=== PATIENT | female | born 1930 | race Caucasian/White ===

== ENCOUNTER 2016-10-19 14:50 | Inpatient (IN) | payer MEDICARE ==
[~2016-10-19] VITALS: Ht 162.6 cm; Wt 80.6 kg
[~2016-10-19 14:50] MED LIST: ENAL10TA PO; METF500T4 PO; METO25 PO; SIMV20TA6 PO; WARF2TAB6 PO
[2016-10-19 16:02] LABS: GLUCOSE,POINT OF CARE 113 MG/DL (70-110)
[2016-10-19 19:33] LABS: BASOPHILS % (AUTO) 0.3 % (0.0-2.0); EOSINOPHILS % (AUTO) 2.2 % (1.0-6.0); HEMOGLOBIN 12.9 g/dL (12.0-16.0); LYMPHOCYTES # (AUTO) 1.3 K/uL (1.0-4.8); LYMPHOCYTES % (AUTO) 13.6 % (22.0-44.0); MEAN CORPUSCULAR HEMOGLOBIN 24.6 pg (26.0-34.0); MEAN CORPUSCULAR HGB CONC 31.5 G/dL (31.0-37.0); MEAN CORPUSCULAR VOLUME 78 fL (80-100); MONOCYTES # (AUTO) 1.1 K/uL (0.1-1.0); MONOCYTES % (AUTO) 11.5 % (2.0-9.0); NEUTROPHILS # (AUTO) 6.7 K/uL (1.8-7.7); NEUTROPHILS % (AUTO) 72.4 % (40.0-70.0); PLATELET COUNT (AUTO) 209 K/uL (150-450); RED BLOOD CELL COUNT(AUTO) 5.24 MIL/uL (4.00-5.20); RED CELL DISTRIBUTION WIDTH 18.7 % (11.5-14.5); WHITE BLOOD COUNT (AUTO) 9.3 K/uL (4.5-11.0)
[2016-10-19 19:42] LABS: ANION GAP 2 mmol/L (8-16); CALCIUM, TOTAL 9.3 mg/dL (8.8-10.5); CARBON DIOXIDE 28 mmol/L (22-29); CHLORIDE 102 mmol/L (98-107); CREATININE 1.17 mg/dL (0.60-1.30); GLOMERULAR FILTR. RATE CALC 44 mL/min (>60); POTASSIUM 4.2 mmol/L (3.5-5.1); SODIUM SERUM 132 mmol/L (136-145); UREA NITROGEN, BLOOD 28 mg/dL (7-18)
[2016-10-19 19:48] LABS: INR 1.8 (0.9-1.1)
[2016-10-19 20:07] LABS: ALANINE AMINOTRANSFERASE 23 U/L (12-78); ALBUMIN 3.3 g/dL (3.4-5.0); ASPARTATE AMINOTRANSFERASE 39 U/L (15-37); B-TYPE NATRIURETIC PEPTIDE 602 pg/mL (0-100); BILIRUBIN,TOTAL 0.8 mg/dL (0.1-1.0); CREATINE KINASE MB 0.7 ng/mL (0-5); CREATINE KINASE, TOTAL 93 U/L (26-192); TOTAL PROTEIN, SERUM 8.3 g/dL (6.4-8.2)
[2016-10-19] MEDS ORDERED: ALBUTEROL SULFATE 2.5 MG/0.5 ML NEB SOLUTION NEB ONE (20:45)
[2016-10-19] MEDS ORDERED: NITROGLYCERIN 2% (1 GM=INCH) PACKET TP ONE (20:45)
[2016-10-19] MEDS ORDERED: IPRATROPIUM BROMIDE 0.5 MG/2.5 ML NEB SOLUTION NEB ONE (20:45)
[2016-10-19] MEDS ORDERED: FUROSEMIDE 40 MG/4 ML VIAL IVP ONE (20:45)
[2016-10-19 22:01] LABS: RBC MORPHOLOGY COMMENT ABNORMAL RBC MORPH
[2016-10-20] VITALS (9 sets, daily range): BP systolic 92–111; BP diastolic 45–85
[2016-10-20 06:46] LABS: BASOPHILS # (AUTO) 0.01 K/uL (0.00-0.20); BASOPHILS % (AUTO) 0.2 % (0.0-2.0); EOSINOPHILS # (AUTO) 0.16 K/uL (0.00-0.70); EOSINOPHILS % (AUTO) 1.81 % (1.0-6.0); HEMATOCRIT 37.2 % (36-46); HEMOGLOBIN 11.9 g/dL (12.0-16.0); LYMPHOCYTES # (AUTO) 1.1 K/uL (1.0-4.8); LYMPHOCYTES % (AUTO) 12.9 % (22.0-44.0); MEAN CORPUSCULAR HEMOGLOBIN 25.1 pg (26.0-34.0); MEAN CORPUSCULAR VOLUME 78 fL (80-100); MONOCYTES # (AUTO) 1.2 K/uL (0.1-1.0); MONOCYTES % (AUTO) 13.9 % (2.0-9.0); NEUTROPHILS # (AUTO) 6.2 K/uL (1.8-7.7); NEUTROPHILS % (AUTO) 71.2 % (40.0-70.0); PLATELET COUNT (AUTO) 197 K/uL (150-450); RED BLOOD CELL COUNT(AUTO) 4.74 MIL/uL (4.00-5.20); RED CELL DISTRIBUTION WIDTH 19.1 % (11.5-14.5); WHITE BLOOD COUNT (AUTO) 8.7 K/uL (4.5-11.0)
[2016-10-20 06:55] LABS: CALCIUM, TOTAL 9.1 mg/dL (8.8-10.5); CREATININE 1.31 mg/dL (0.60-1.30); POTASSIUM 4.3 mmol/L (3.5-5.1)
[2016-10-20] MEDS ORDERED: OxyCODONE HCL/ACETAMINOPHEN 5-325 MG TABLET PO PRN ×2 (07:00)
[2016-10-20] MEDS ORDERED: ACETAMINOPHEN 325 MG TABLET PO PRN (07:00)
[2016-10-20] MEDS ORDERED: ONDANSETRON HCL 4 MG/2 ML VIAL IVP PRN (07:00)
[2016-10-20] MEDS ORDERED: 0.9% SODIUM CHLORIDE 10 ML SYRINGE IVP PRN (07:00)
[2016-10-20] MEDS ORDERED: MAGNESIUM HYDROXIDE SUSPENSION 30 ML UDCUP PO PRN (07:00)
[2016-10-20] MEDS: PANTOPRAZOLE SODIUM 40 MG/VIAL IVP SCH (08:13)
[2016-10-20] MEDS: DOCUSATE SODIUM 100 MG CAPSULE PO SCH ×2 (08:14→20:41)
[2016-10-20] MEDS ORDERED: ENALAPRIL MALEATE 10 MG TABLET PO SCH (09:00)
[2016-10-20 11:52] LABS: RBC MORPHOLOGY COMMENT ABNORMAL RBC MORPH
[2016-10-20] MEDS: SIMVASTATIN 20 MG TABLET PO SCH (13:05)
[2016-10-20] MEDS: METOPROLOL TARTRATE 25 MG TABLET PO SCH ×3 (13:08→20:41)
[2016-10-20] MEDS: FUROSEMIDE 40 MG/4 ML VIAL IVP SCH ×2 (13:08→20:41)
[2016-10-20] MEDS: WARFARIN SODIUM 2 MG TABLET PO SCH (16:28)
[2016-10-21 04:26] VITALS: BP 102/47
[2016-10-21 08:08] LABS: BASOPHILS % (AUTO) 0.3 % (0.0-2.0); EOSINOPHILS % (AUTO) 3.8 % (1.0-6.0); HEMATOCRIT 38.7 % (36-46); HEMOGLOBIN 12.1 g/dL (12.0-16.0); LYMPHOCYTES % (AUTO) 12.6 % (22.0-44.0); MEAN CORPUSCULAR HEMOGLOBIN 24.6 pg (26.0-34.0); MEAN CORPUSCULAR HGB CONC 31.1 G/dL (31.0-37.0); MEAN CORPUSCULAR VOLUME 79 fL (80-100); MONOCYTES # (AUTO) 0.8 K/uL (0.1-1.0); MONOCYTES % (AUTO) 10.6 % (2.0-9.0); NEUTROPHILS # (AUTO) 5.6 K/uL (1.8-7.7); NEUTROPHILS % (AUTO) 72.7 % (40.0-70.0); PLATELET COUNT (AUTO) 210 K/uL (150-450); RED CELL DISTRIBUTION WIDTH 18.5 % (11.5-14.5); WHITE BLOOD COUNT (AUTO) 7.7 K/uL (4.5-11.0)
[2016-10-21 08:17] LABS: RBC MORPHOLOGY COMMENT ABNORMAL RBC MORPH
[2016-10-21 08:24] LABS: CREATININE 1.32 mg/dL (0.60-1.30); POTASSIUM 4.4 mmol/L (3.5-5.1)
[2016-10-21 08:38] VITALS: BP 95/51
[2016-10-21] MEDS: METOPROLOL TARTRATE 25 MG TABLET PO SCH ×2 (09:00→20:05)
[2016-10-21] MEDS: DOCUSATE SODIUM 100 MG CAPSULE PO SCH ×2 (09:00→20:05)
[2016-10-21] MEDS: LEVALBUTEROL HCL 0.63 MG/3 ML NEB SOLUTION NEB SCH ×3 (09:00→19:46)
[2016-10-21] MEDS: IPRATROPIUM BROMIDE 0.5 MG/2.5 ML NEB SOLUTION NEB SCH ×3 (09:00→19:46)
[2016-10-21] MEDS: FUROSEMIDE 40 MG/4 ML VIAL IVP SCH (09:12)
[2016-10-21] MEDS: PANTOPRAZOLE SODIUM 40 MG/VIAL IVP SCH (09:15)
[2016-10-21] MEDS ORDERED: SODIUM CHLORIDE 0.9% 500 ML IV ONE (10:30)
[2016-10-21] MEDS: GuaiFENesin/D-METHORPHAN [SUGAR-FREE] 200-20MG/10 ML SYRUP UDCUP PO PRN ×2 (10:41→16:42)
[2016-10-21] MEDS ORDERED: SODIUM CHLORIDE 0.9% 250 ML IV ONE (10:45)
[2016-10-21 11:28] VITALS: BP 118/66
[2016-10-21] MEDS: CefTRIAXone 1 GM/DEXTROSE 50 ML IV SCH (11:50)
[2016-10-21] MEDS: SIMVASTATIN 20 MG TABLET PO SCH (11:50)
[2016-10-21 16:06] VITALS: BP 133/59
[2016-10-21] MEDS: WARFARIN SODIUM 2 MG TABLET PO SCH (17:44)
[2016-10-21 18:30] VITALS: BP 132/68
[2016-10-21] MEDS ORDERED: DIGOXIN 250 MCG/ML 2 ML AMP IVP ONE (18:45)
[2016-10-21 19:44] VITALS: BP 117/69
[2016-10-22 00:05] VITALS: BP 113/56
[2016-10-22] MEDS ORDERED: DIGOXIN 250 MCG/ML 2 ML AMP IVP ONE (01:00)
[2016-10-22] MEDS: LEVALBUTEROL HCL 0.63 MG/3 ML NEB SOLUTION NEB SCH ×4 (01:41→20:12)
[2016-10-22] MEDS: IPRATROPIUM BROMIDE 0.5 MG/2.5 ML NEB SOLUTION NEB SCH ×4 (01:41→20:12)
[2016-10-22 04:12] VITALS: BP 146/92
[2016-10-22 06:51] LABS: BASOPHILS % (AUTO) 0.4 % (0.0-2.0); EOSINOPHILS % (AUTO) 2.8 % (1.0-6.0); HEMATOCRIT 37.5 % (36-46); HEMOGLOBIN 11.9 g/dL (12.0-16.0); LYMPHOCYTES # (AUTO) 0.7 K/uL (1.0-4.8); MEAN CORPUSCULAR HGB CONC 31.8 G/dL (31.0-37.0); MEAN CORPUSCULAR VOLUME 79 fL (80-100); MONOCYTES # (AUTO) 0.7 K/uL (0.1-1.0); MONOCYTES % (AUTO) 10.1 % (2.0-9.0); NEUTROPHILS # (AUTO) 5.6 K/uL (1.8-7.7); NEUTROPHILS % (AUTO) 76.7 % (40.0-70.0); PLATELET COUNT (AUTO) 231 K/uL (150-450); RED BLOOD CELL COUNT(AUTO) 4.75 MIL/uL (4.00-5.20); RED CELL DISTRIBUTION WIDTH 18.2 % (11.5-14.5); WHITE BLOOD COUNT (AUTO) 7.3 K/uL (4.5-11.0)
[2016-10-22 08:06] VITALS: BP 118/65
[2016-10-22] MEDS: PANTOPRAZOLE SODIUM 40 MG/VIAL IVP SCH (08:58)
[2016-10-22] MEDS: GuaiFENesin/D-METHORPHAN [SUGAR-FREE] 200-20MG/10 ML SYRUP UDCUP PO PRN (09:00)
[2016-10-22] MEDS: DIGOXIN 125 MCG TABLET PO SCH (09:00)
[2016-10-22] MEDS: DOCUSATE SODIUM 100 MG CAPSULE PO SCH ×2 (09:00→20:17)
[2016-10-22] MEDS: SIMVASTATIN 20 MG TABLET PO SCH (09:00)
[2016-10-22 10:05] LABS: PROTHROMBIN TIME 32.1 SEC (9.4-11.6)
[2016-10-22 10:28] LABS: CALCIUM, TOTAL 9.2 mg/dL (8.8-10.5); CREATININE 1.21 mg/dL (0.60-1.30); DIGOXIN 1.12 ng/mL (0.90-2.00); POTASSIUM 4.5 mmol/L (3.5-5.1)
[2016-10-22] MEDS: CefTRIAXone 1 GM/DEXTROSE 50 ML IV SCH (11:12)
[2016-10-22 11:33] VITALS: BP 120/46
[2016-10-22] MEDS: METOPROLOL TARTRATE 25 MG TABLET PO SCH ×2 (12:26→20:17)
[2016-10-22 15:35] LABS: MAGNESIUM 1.6 mg/dL (1.80-2.40)
[2016-10-22] MEDS ORDERED: MAGNESIUM SULFATE 2 GM in DEXTROSE 5%-WATER 50 ML IV PRN (15:45)
[2016-10-22] MEDS ORDERED: MAGNESIUM SULFATE 4 GM/WATER 100 ML IV PRN (15:45)
[2016-10-22] MEDS: MAGNESIUM OXIDE 400 MG TABLET PO PRN ×2 (16:07→22:21)
[2016-10-22 16:21] LABS: ALBUMIN 2.9 g/dL (3.4-5.0)
[2016-10-22 16:45] VITALS: BP 124/72
[2016-10-22] MEDS ORDERED: SODIUM CHLORIDE 0.9% 500 ML IV ONE (18:10)
[2016-10-22 20:00] VITALS: BP 130/56
[2016-10-23] VITALS: BP 109/71
[2016-10-23] MEDS: LEVALBUTEROL HCL 0.63 MG/3 ML NEB SOLUTION NEB SCH ×2 (03:12→08:26)
[2016-10-23] MEDS: IPRATROPIUM BROMIDE 0.5 MG/2.5 ML NEB SOLUTION NEB SCH ×2 (03:12→08:26)
[2016-10-23 05:02] VITALS: BP 125/58
[2016-10-23 06:53] VITALS: BP 121/65
[2016-10-23 07:25] LABS: INR 3.3 (0.9-1.1); PROTHROMBIN TIME 34.4 SEC (9.4-11.6)
[2016-10-23] MEDS: METOPROLOL TARTRATE 25 MG TABLET PO SCH (08:23)
[2016-10-23] MEDS: DIGOXIN 125 MCG TABLET PO SCH (08:23)
[2016-10-23] MEDS: SIMVASTATIN 20 MG TABLET PO SCH (08:23)
[2016-10-23] MEDS: DOCUSATE SODIUM 100 MG CAPSULE PO SCH (08:23)
[2016-10-23] MEDS: PANTOPRAZOLE SODIUM 40 MG/VIAL IVP SCH (10:05)
[2016-10-23] MEDS: CefTRIAXone 1 GM/DEXTROSE 50 ML IV SCH (10:12)
[2016-10-23 11:30] VITALS: BP 113/49
[2016-10-23] MEDS ORDERED: MAGOX PO (11:50)
[2016-10-23] MEDS ORDERED: DIGO125T PO (11:50)
== END 2016-10-23 12:30 | disposition home or self-care (01) | DRG 291 ==
LOC: EMS 15:07 → 5S 23:35
PROVIDERS: ADMIT Internal Medicine; ATTEND Internal Medicine
DX: I11.0 Hypertensive heart disease with heart failure (principal); J18.9 Pneumonia, unspecified organism; E43 Unspecified severe protein-calorie malnutrition; J44.0 Chronic obstructive pulmonary disease with (acute) lower respiratory infection; D68.9 Coagulation defect, unspecified; J90 Pleural effusion, not elsewhere classified; I50.43 Acute on chronic combined systolic (congestive) and diastolic (congestive) heart failure; I48.91 Unspecified atrial fibrillation; E11.9 Type 2 diabetes mellitus without complications; E78.00 Pure hypercholesterolemia, unspecified; J44.9 Chronic obstructive pulmonary disease, unspecified; E78.5 Hyperlipidemia, unspecified; J40 Bronchitis, not specified as acute or chronic; E83.42 Hypomagnesemia; I70.0 Atherosclerosis of aorta; I95.9 Hypotension, unspecified; Z86.718 Personal history of other venous thrombosis and embolism; Z79.01 Long term (current) use of anticoagulants; Z68.30 Body mass index [BMI] 30.0-30.9, adult; Z88.2 Allergy status to sulfonamides; Z79.899 Other long term (current) drug therapy; Z79.4 Long term (current) use of insulin
CPT/HCPCS: 71020; 82962; 83735; 87040; 87070; 87205; 93005; 93306; 94640; 96375; 99285; C9113; J0696; J1160; J1940; J7040; J7050